=== PATIENT | female | born 1985 | race Two or more races ===

== ENCOUNTER 2021-10-19 06:18 | Day surgery (SDC) | payer MEDICAID ==
[2021-10-16 11:28] LABS: Basophils # (auto) 0 10 ^3/uL (0-0.2); Basophils % (auto) 0.3 % (0.0-2.0); Eosinophils # (auto) 0.1 10 ^3/uL (0-0.8); Eosinophils % (auto) 2.1 % (0.0-7.0); Hematocrit 39.7 % (36.0-46.0); Hemoglobin 13.4 g/dL (12.2-16.2); Lymphocytes % (auto) 32.4 % (10.0-50.0); Mean Corpuscular Hemoglobin 28.9 pg (28.0-32.0); Mean Corpuscular Hgb Conc. 33.8 g/dL (32.0-36.0); Mean Corpuscular Volume 85.5 fL (80.0-100.0); Monocytes # (auto) 0.4 10 ^3/uL (0-1.3); Neutrophils # (auto) 3.7 10 ^3/uL (1.6-8.6); Neutrophils % (auto) 59.2 % (37.0-80.0); Nucleated Red Blood Cells % 0.1 %; Red Blood Cells 4.64 10^6/uL (4.0-5.20); Red Cell Distribution Width 13.4 % (11.8-14.3); White Blood Cell 6.2 10^3/uL (4.4-10.8)
[2021-10-16 11:41] LABS: Urine Bacteria NONE SEEN /hpf (None Seen); Urine Blood 3+ /uL (Negative); Urine Specific Gravity 1.014 (1.001-1.035); Urine WBC 323 /hpf (0 - 5)
[2021-10-16 11:52] LABS: Partial Thromboplastin Time 29.4 sec (23.6-33.0)
[2021-10-16 12:34] LABS: Albumin 4.2 g/dL (3.4-5.0); BUN/Creatinine Ratio 16.7; Calcium 8.9 mg/dL (8.5-10.1); Potassium 4.2 mmol/L (3.5-5.1)
[2021-10-16 12:37] LABS: Bilirubin, Total 0.4 mg/dL (0.2-1.0); Total Protein 7.5 g/dL (6.4-8.2)
[~2021-10-19] VITALS: Ht 162.6 cm; Wt 66.2 kg
[2021-10-19] MEDS ORDERED: ceFAZolin 1GM/50ML 100 ML IV ONE (07:12)
[2021-10-19] MEDS ORDERED: MIDAZOLAM HCL 2MG/2ML 2ml VIAL (1mg/ml) ONE (07:30)
[2021-10-19] MEDS ORDERED: MEPERIDINE HCL (25 MG/ML) 1ML VIAL ONE (07:30)
[2021-10-19] MEDS ORDERED: fentaNYL CITRATE 100 MCG/2 ML VL ONE (07:30)
[2021-10-19] MEDS ORDERED: HYDR-4902 PO (07:34)
[2021-10-19] MEDS ORDERED: ONDA-144 PO (07:34)
[2021-10-19] MEDS ORDERED: IBUP800T27 PO (07:34)
[2021-10-19] MEDS ORDERED: PROPOFOL 10 MG/ML 20 ML IV ONE (07:55)
[2021-10-19] MEDS ORDERED: DexAMETHasone SOD PHOS 10MG/1ML VIAL INJ ONE (07:55)
[2021-10-19 08:55] VITALS: BP 138/82
[2021-10-19] MEDS ORDERED: ePHEDrine SULFATE 50 MG/ML AMP IV PRN (09:15)
[2021-10-19] MEDS ORDERED: hydrALAZINE HCL 20 MG/ML VL IV PRN (09:15)
[2021-10-19] MEDS ORDERED: HYDROmorphone HCL 2 MG/ML VL/or syr IV PRN (09:15)
[2021-10-19] MEDS ORDERED: MORPHINE SULFATE 4 MG/ML SYR/VIAL IV PRN (09:15)
[2021-10-19] MEDS ORDERED: MIDAZOLAM HCL 2MG/2ML 2ml VIAL (1mg/ml) IV PRN (09:15)
[2021-10-19] MEDS ORDERED: ONDANSETRON HCL 4 MG/2 ML VIAL IV PRN (09:15)
[2021-10-19] MEDS ORDERED: LABETALOL HCL 5 MG/ML 4ML SYRINGE IV PRN (09:15)
== END 2021-10-19 09:30 | disposition home or self-care (01) ==
LOC: SUR 06:18
PROVIDERS: ATTEND Obstetrics & Gynecology
DX: N92.0 Excessive and frequent menstruation with regular cycle (principal); J45.909 Unspecified asthma, uncomplicated; Z98.891 History of uterine scar from previous surgery; Z98.51 Tubal ligation status; Z83.3 Family history of diabetes mellitus; Z20.822 Contact with and (suspected) exposure to COVID-19
CPT/HCPCS: 36415; 58563; 80053; 81001; 81025; 84702; 85025; 85610; 85730; 86850; 86900; 86901; 88305; J0690; J1100; J2175; J2250; J2704; J3010; U0003

== ENCOUNTER 2024-12-07 09:28 | Emergency (ER) | payer MEDICAID ==
[~2024-12-07] VITALS: Ht 162.6 cm; Wt 68.4 kg
[~2024-12-07 09:28] MED LIST: HYDR-4902 PO; IBUP-1456 PO; ONDA-144 PO
--- NOTE | 2024-12-07 09:40 | ED.PDOC ---
[employer]PER[employer] [facility]ANDY HPI Comments 39 y/o F, with PShx of a partial hysterectomy presents to the ED for CC of abnormal vaginal bleeding. Patient states, she has been experiencing abnormal vaginal bleeding sudden onset, x1day ago. Patient reports, that she has not had a menstrual period in [id number] following, partial hysterectomy. Patient endorses, seeing her [employer] for SS [id number] prior and being told to have an enlarged left ovary. Patient comments, that she called [employer] when symptoms arouse and was relayed to the ED for a further, evaluation of symptoms. At this time patient c/o suprapubic abdominal pain with associated lower back pain. Patient denies fatigue, weakness, or dizziness. No other symptoms or modifying factors are present at this time. Chief Complaint: Vaginal Bleed Time Seen by MD: 09:40 Reviewed Notes: Nurses Notes, Medications, Allergies Allergies: Coded Allergies: NO KNOWN ALLERGIES (Unverified , 10/17/21) Home Meds Active Scripts Ondansetron (Zofran) 4 Mg Tab, 4 MG PO Q4HPRN PRN, #30 TAB Prov:MARTINEZ GOULD 10/19/21 Ibuprofen (Ibuprofen) 800 Mg Tab, 800 MG PO TID PRN for 15 Days, #40 TAB Prov:MARTINEZ GOULD 10/19/21 Hydrocodone-Acetaminophen (Hydrocodone Bitartrate/AC 5-325 mg) 1 Tab Tab, 1 TAB PO Q6HPRN PRN for 6 Days, #24 TAB Prov:MRATINEZ GOULD 10/19/21 Information Source: Patient Mode of Arrival: Ambulatory Timing: Days Prehospital treatment: None Severity: Moderate Vaginal Discharge: None Vaginal Lesions: None Bleeding Quality: Bright Red Vaginal Mass: None Onset Of Mass/Bleeding: Spontaneous Last Consensual [place]: Unknown Control: Hysterectomy (partial) Blood Type: Unknown Symptoms of Possible : None Associated Signs and Symptoms: Vaginal Bleeding Past Medical History PAST MEDICAL HISTORY: Denies Surgical History: Hysterectomy (partial) [employer] [facility] History: Ovarian Cysts Family History Family History: Unknown Social History Smoker: Non-Smoker Alcohol: Denies ETOH Use Drugs: Denies Drug Use Lives In: Home Constitutional: denies: chills, diaphoresis, fatigue, fever, malaise, sweats, weakness, others EENTM: denies: blurred vision, double vision, ear bleeding, ear discharge, ear drainage, ear pain, ear ringing, eye pain, eye redness, hearing loss, mouth pain, mouth swelling, nasal discharge, nose bleeding, nose congestion, nose pain, photophobia, tearing, throat pain, throat swelling, voice changes, others Respiratory: denies: cough, hemoptysis, orthopnea, SOB at rest, shortness of breath, SOB with excertion, stridor, wheezing, others Cardiovascular: denies: chest pain, dizzy spells, diaphoresis, Dyspnea on exertion, edema, irregular heart beat, left arm pain, lightheadedness, palpitations, PND, syncope, others Gastrointestinal: reports: abdominal pain; denies: abdomen distended, blood streaked bowels, constipated, diarrhea, dysphagia, difficulty swallowing, hem atemesis, melena, nausea, poor appetite, poor fluid intake, rectal bleeding, rectal pain, vomiting, others Genitourinary: reports: abnormal vagina bleeding; denies: burning, dyspareunia, dysuria, flank pain, frequency, hematuria, incontinence, pain, , vagina discharge, urgency, others Neurological: denies: dizziness, fainting, headache, left sided numbness, left sided weakness, numbness, paresthesia, pre-existing deficit, right sided n umbness, right sided weakness, seizure, speech problems, tingling, tremors, weakness, others Musculoskeletal: reports: back pain; denies: gout, joint pain, joint swelling, muscle pain, muscle stiffness, neck pain, others Integumetry: denies: bruises, change in color, change in hair/nails, dryness, laceration, lesions, lumps, rash, wounds, others Allergic/Immunocompromised: denies: Difficulty Healing, Frequent Infections, Hives, Itching, others Hematologic/Lymphatic: denies: anemia, blood clots, easy bleeding, easy bruising, swollen glands, others Endocrine: denies: excessive hunger, excessive sweating, excessive thirst, excessive urination, flushing, intolerance to cold, intolerance to heat, unexplained weight gain, unexplained weight loss, others Psychiatric: denies: anxiety, bipolar disorder, depression, hopeless, panic disorder, schizophrenia, sleepless, suicidal, others All Other Systems: Reviewed and Negative Physical Exam General Appearance: Moderate Distress HEENT: Normal ENT Inspection, Pharynx Normal, TMs Normal Neck: Full Range of Motion, Non-Tender, Normal, Normal Inspection Respiratory: Chest Non-Tender, Lungs Clear, No Accessory Muscle Use, No Respiratory Distress, Normal Breath Sounds Cardiovascular: No Edema, No JVD, No Murmur, No Gallop, Normal Peripheral Pulses, Regular Rate/Rhythm Breast Exam: Deferred Gastrointestinal: No Organomegaly, Non Tender, No Pulsatile Mass, Normal Bowel Sounds, Soft Genitalia: Deferred Pelvic: Deferred Rectal: Deferred Extremities: No calf tenderness, Normal capillary refill, Normal inspection, Normal range of motion, Non-tender, No pedal edema Musculoskeletal : Apperance: Normal Neurologic: Alert, motion designer II-XII nml as Tested, No Motor Deficits, Normal Affect, Normal Mood, No Sensory Deficits Cerebellar Function: Normal Reflexes: Normal Skin: Dry, Normal Color, Warm Peripheral Pulses: 3+ Radial (R), 3+ Radial (L) Lymphatic: No Adenopathy Was a procedure done? Was a procedure done?: No Differential Diagnosis ([employer] [facility]) Vaginal Bleeding: Menometrorrhagia, Menstrual Bleeding, Myomatous Uterus, PID X-Ray, Labs, Meds, VS Vital Signs Date Time Temp Pulse Resp B/P (MAP) Pulse Ox O2 Delivery O2 Flow Rate FiO2 12/07/24 10:20 98.2 71 18 152/98 (116) 96 98.2 12/07/24 10:20 71 18 96 Room Air 12/07/24 09:28 98.0 81 18 144/89 98 98.0 Lab Test 12/07/24 11:06 Range/Units Urine Color Colorless Yellow Urine Clarity Turbid H Clear Urine pH 7.0 5.0-9.0 Urine Specific [place] 1.006 1.001-1.035 Urine Protein Negative Negative Urine Ketones Negative Negative Urine Blood 1+ H Negative /uL Urine Nitrite Negative Negative Urine Bilirubin Negative Negative Urine Urobilinogen Normal Negative mg/dL Urine Leukocyte Esterase Negative Negative /uL Urine RBC 12 0 - 4 /hpf Urine Microscopic WBC 2 0-5 /HPF Urine Squamous Epithelial Cells Few <5 /hpf Urine Bacteria Few H None Seen /hpf Urine Glucose Normal Normal mg/dL [facility] [id number] [facility] [address] Ph: [phone] DIAGNOSTIC IMAGING Diagnostic Imaging Report : [id number] Signed PATIENT: ALYSON MYERS ACCT: [id number] UNIT: [id number] : 1985 LOC: ER ROOM / BED: / AGE / SEX: 39 / F ADM STATUS: REG ER SERVICE [id number] ORDERING PHYSICIAN: LILLI BHATT MD PROCEDURE(s): PELUS - PELVIC REASON: ovariancyst ORDER NUMBER(s): [id number], ACCESSION NUMBER(s): [id number] INDICATION: ovariancyst TECHNIQUE: Multiple real-time grayscale transabdominal sonographic images along with color and duplex Doppler of the uterus and ovaries were obtained. COMPARISON: None FINDINGS: The uterus measures 8.0 x 6.0 x 5.0 cm. The endometrial stripe measures 0.9 cm. Right ovary measures 2.2 x 1.5 x 1.6 cm with normal Doppler color flow. Right ovarian cyst measures 1.4 cm. Left ovary measures 2.5 x 1.3 x 2.0 cm with normal Doppler color flow IMPRESSION: Right ovarian cyst measures 1.4 cm. ATED BY: MORTEZA REAGAN MD DICTATED DATE/TIME: 12/07/241226 SIGNED BY: MORTEZA REAGAN MD SIGNED DATE/TIME: 12/07/241226 CC: Patient alert. Complaining vaginal spotting. Vitals stable. Answering all questions. Ultrasound does not reveal ovarian cyst. Denies abdominal pain. No bleeding. Explained to the patient. Continue monitoring. No acute process. No leg swelling. No abdominal pain. Comfortable. Left without telling anyone. Time of 1ST Reevaluation: 10:10 Reevaluation 1ST: Unchanged Patient Education/Counseling: Diagnosis, Treatment Family Education/Counseling: No Family Present Departure 1 Departure Time of Disposition: 18:03 Impression: Primary Impression: Ovarian cyst Qualified Codes: N83.209 - Unspecified ovarian cyst, unspecified side Disposition: 07 LEFT AWOL/ELOPED Condition: Good Discharged With: Self Critical Care Note Critical Care Time?: No Stability Stability form required: No Heart Score Heart Score: Heart Score Response (Comments) Value History N/A 0 EKG N/A 0 Age N/A 0 Risk Factors N/A 0 Troponin N/A 0 Total 0 I personally scribed for LILLI BHATT MD ([email or web address]) on 12/07/24 at 09:40. Electronically submitted by Jenna Martin ([email or web address]). I personally scribed for LILLI BHATT MD ([email or web address]) on 12/07/24 at 10:30. Electronically submitted by Jenna Martin ([email or web address]). I personally scribed for LILLI BHATT MD ([email or web address]) on 12/07/24 at 12:41. Electronically submitted by Jenna Martin ([email or web address]). LILLI BHATT MD Dec 07, 2024 09:40
[2024-12-07 10:20] VITALS: BP 152/98; PULSE 71; RESP 18; TEMP 98.2; O2SAT 96
[2024-12-07 11:55] LABS: Urine Protein, UAD Negative (Negative)
--- NOTE | 2024-12-07 12:29 | DVH ---
INDICATION: ovariancyst TECHNIQUE: Multiple real-time grayscale transabdominal sonographic images along with color and duplex Doppler of the uterus and ovaries were obtained. COMPARISON: None FINDINGS: The uterus measures 8.0 x 6.0 x 5.0 cm. The endometrial stripe measures 0.9 cm. Right ovary measures 2.2 x 1.5 x 1.6 cm with normal Doppler color flow. Right ovarian cyst measures 1.4 cm. Left ovary measures 2.5 x 1.3 x 2.0 cm with normal Doppler color flow IMPRESSION: Right ovarian cyst measures 1.4 cm.
== END 2024-12-07 13:08 | disposition left against medical advice (07) ==
LOC: ER 09:28
DX: N83.201 Unspecified ovarian cyst, right side (principal); Z90.710 Acquired absence of both cervix and uterus; Z79.899 Other long term (current) drug therapy
CPT/HCPCS: 76856; 81001